=== PATIENT | female | born 1995 | race Caucasian/White ===

== ENCOUNTER → 2018-05-03 | Outpatient (REF) | payer BC ==
[2018-05-03 16:38] LABS: HEMATOCRIT 44.4 % (36.0-47.0); HEMOGLOBIN 15.4 g/dl (12.0-15.5); MEAN CORPUSCULAR HGB CONC 34.7 g/dl (32.0-36.5); MEAN CORPUSCULAR VOLUME 89.3 fl (80.0-96.0); PLATELET COUNT, AUTOMATED 227 10^3/uL (150-450); RED BLOOD COUNT 4.97 10^6/uL (4.00-5.40); WHITE BLOOD COUNT 9.5 10^3/uL (4.0-10.0)
[2018-05-03 17:38] LABS: HCG, SERUM QUANTITATIVE 60923 MIU/ML
[2018-05-04 08:59] LABS: RUBELLA IgG QUALITATIVE IMMUNE (IMMUNE)
[2018-05-04 09:02] LABS: HBsAg Prenatal NEGATIVE (NEGATIVE)
[2018-05-04 09:28] LABS: HEPATITIS C VIRUS ABY INDEX 0.1 INDEX (<0.8)
[2018-05-04 09:28] LABS: HIV 1&2 SCREEN CENTAUR NEGATIVE (NEGATIVE)
== END ==
LOC: M LAB REF 16:18
DX: Z32.01 Encounter for pregnancy test, result positive (principal); O36.80X0 Pregnancy with inconclusive fetal viability, not applicable or unspecified
CPT/HCPCS: 86762

== ENCOUNTER → 2020-09-08 | Outpatient (CLI) | payer SELFPAY ==
[~2020-09-08] MED LIST: prenatal vitamin PO
== END ==
LOC: M LABCAHC 17:30
PROVIDERS: ATTEND Pediatrics
DX: Z11.59 Encounter for screening for other viral diseases (principal)

== ENCOUNTER → 2020-10-26 | Outpatient (CLI) | payer BC, OTHER | LOC: M LABSMTC 08:00 | PROVIDERS: ATTEND Pediatrics | DX: Z20.822 Contact with and (suspected) exposure to COVID-19 (principal) ==